=== PATIENT | male | born 1960 | race Caucasian/White ===

== ENCOUNTER → 2017-09-04 | Outpatient (CLI) | payer BC ==
[~2017-09-04] MED LIST: ATROPINE 0.5 MG/5 ML DISP.SYRINGE.; CONTRAST GIVEN MC; IODIXANOL 320 MG/ML 100 ML VIAL.; LIDOCAINE 2% 20 ML VIAL.; MIDAZOLAM HCL/PF 2 MG/2 ML VIAL.; ONDANSETRON PF 4 MG/2 ML VIAL.; fentaNYL PF VIAL 100 MCG/2 ML VIAL
[2017-09-04 08:17] LABS: HEMATOCRIT 42.8 % (39.0-53.0); MEAN CORPUSCULAR HEMOGLOBIN 30 pg (25-35); MEAN CORPUSCULAR HGB CONC 35 g/dL (31-37); MEAN CORPUSCULAR VOLUME 86 fL (79-100); PLATELET COUNT 262 x10^3/uL (140-400); RED BLOOD COUNT 4.95 x10^6/uL (4.30-5.70)
[2017-09-04 08:26] LABS: ANION GAP 9 (6-14); BLOOD UREA NITROGEN 24 mg/dL (8-26); CALCIUM 9.6 mg/dL (8.5-10.1); CARBON DIOXIDE 26 mmol/L (21-32); CHLORIDE 99 mmol/L (98-107); CREATININE 1.2 mg/dL (0.7-1.3); GFR 63.1; GLUCOSE 122 mg/dL (70-99); POTASSIUM 4.4 mmol/L (3.5-5.1); SODIUM 134 mmol/L (136-145)
[2017-09-04 08:29] LABS: PARTIAL THROMBOPLASTIN TIME 26 SEC (24-38); PROTHROMBIN TIME PATIENT 12.5 SEC (11.7-14.0)
[2017-09-04] MEDS: IODIXANOL 320 MG/ML 100 ML VIAL. IART (10:38)
[2017-09-04] MEDS: MIDAZOLAM HCL/PF 2 MG/2 ML VIAL. IV (10:39)
[2017-09-04] MEDS: LIDOCAINE 2% 20 ML VIAL. IJ (10:39)
[2017-09-04] MEDS: fentaNYL PF VIAL 100 MCG/2 ML VIAL IV (10:40)
== END | disposition home or self-care (01) ==
LOC: CCL 07:55
DX: I25.119 Atherosclerotic heart disease of native coronary artery with unspecified angina pectoris (principal); I10 Essential (primary) hypertension; E78.5 Hyperlipidemia, unspecified; F41.9 Anxiety disorder, unspecified; K21.9 Gastro-esophageal reflux disease without esophagitis; Z79.899 Other long term (current) drug therapy; Z79.82 Long term (current) use of aspirin; Z79.01 Long term (current) use of anticoagulants; Z82.49 Family history of ischemic heart disease and other diseases of the circulatory system
CPT/HCPCS: 36415; 80048; 85027; 85610; 85730; 93458; 99152; C1769; C1771; C1892; G0269; J1644; J2250; J3010

== ENCOUNTER → 2017-09-30 | Outpatient (CLI) | payer BC | END | disposition home or self-care (01) | LOC: KCIC MRI 15:11 | DX: M50.223 Other cervical disc displacement at C6-C7 level (principal) | CPT/HCPCS: 72141 ==

== ENCOUNTER 2018-06-27 03:37 | Emergency (ER) | payer BC ==
[~2018-06-27] VITALS: Ht 175.3 cm; Wt 110.2 kg
[~2018-06-27 03:37] MED LIST changes: +ASPI325T11 PO; -ATROPINE 0.5 MG/5 ML DISP.SYRINGE.; -CONTRAST GIVEN MC; +CRESTOR20 MG PO; +FENO145T PO; -IODIXANOL 320 MG/ML 100 ML VIAL.; +LANS30CA66 PO; -LIDOCAINE 2% 20 ML VIAL.; +LISI-334 PO; -MIDAZOLAM HCL/PF 2 MG/2 ML VIAL.; +NIAC500T PO; +OMEG1CAP6 PO; -ONDANSETRON PF 4 MG/2 ML VIAL.; -fentaNYL PF VIAL 100 MCG/2 ML VIAL
[2018-06-27] MEDS ORDERED: ONDANSETRON PF 4 MG/2 ML VIAL. IV ONE (04:45)
[2018-06-27] MEDS ORDERED: fentaNYL PF VIAL 100 MCG/2 ML VIAL IV ONE (04:45)
[2018-06-27] MEDS ORDERED: IV NORMAL SALINE 1000ML BAG 1,000 ML IV ONE (04:45)
--- NOTE | 2018-06-27 04:57 | PHYS DOC ---
Past Medical History Past Medical History: Cancer, Diverticulosis (Dx in 2017 from colonoscopy), High Cholesterol, Hypertension Additional Past Medical Histor: SKIN CA (BONNIE WELLER MD) Past Surgical History: Appendectomy, Other Additional Past Surgical Histo: "TRIPLE HERNIA" (BONNIE WELLER MD) Alcohol Use: Occasionally Drug Use: None (BONNIE WELLER MD) Adult General Chief Complaint Chief Complaint: GROIN PAIN HPI HPI Patient is a 57 year old male who presents with left lower quadrant abdominal/ left groin pain. Pt reports the pain starting yesterday afternoon that he describes as a progressively worsening soreness. He states it "starts right above my testicle" and in his LLQ with rads down his anterior left thigh, stopping at the knee. He rates the pain 4/10 that is constant, and the pain goes up to a 9/10 with palpation. Laying on his left side decreases his pain, while lying supine or on his right side increases pain. Pt's last BM was yesterday (06/26/18) at 1700, and he is still passing gas. He has a history of 3 hernia repairs in 2002 (left and right inguinal hernias w/ mesh, and an umbilical hernia) and an appendectomy. He denies dysuria, hematuria, n/v, diarrhea, constipation, fever, chills, or blood in stool. He had a colonoscopy in 2017 that let to a diagnosis of diverticulosis. Pt recently was diagnosed with "high iron" and fatty disease of the liver. (BONNIE WELLER MD) Review of Systems Review of Systems Constitutional: Denies fever or chills [] Eyes: Denies change in visual acuity, redness, or eye pain [] HENT: Denies nasal congestion or sore throat [] Respiratory: Denies cough or shortness of breath [] Cardiovascular: No additional information not addressed in HPI [] GI: Admits to abdominal pain, most prominent in the LLQ. He denies nausea, vomiting, bloody stools or diarrhea [] : Denies dysuria or hematuria [] Musculoskeletal: Denies back pain or joint pain [] Neurologic: Denies headache, focal weakness or sensory changes [] All other systems were reviewed and found to be within normal limits, except as documented in this note. (BONNIE WELLER MD) Current Medications Current Medications Current Medications Medications (Trade) Dose Ordered Sig/Derek Start Time Stop Time Status Last Admin Dose Admin Fentanyl Citrate (Fentanyl 2ml Vial) 50 mcg 1X ONCE 06/27/18 04:45 06/27/18 04:46 DC 06/27/18 05:03 50 MCG Info (CONTRAST GIVEN -- Rx MONITORING) 1 each PRN DAILY PRN 06/27/18 05:30 06/29/18 05:29 Iohexol (Omnipaque 300 Mg/ml) 75 ml 1X ONCE 06/27/18 05:30 06/27/18 05:31 DC 06/27/18 05:44 75 ML Ondansetron HCl (Zofran) 4 mg 1X ONCE 06/27/18 04:45 06/27/18 04:46 DC 06/27/18 05:03 4 MG Sodium Chloride 1,000 ml @ 1,000 mls/hr 1X ONCE 06/27/18 04:45 06/27/18 05:44 DC 06/27/18 05:02 1,000 MLS/HR (EIDENBERG,DEMOND DO) Allergies Allergies Allergies Coded Allergies Type Severity Reaction Last Updated Verified No Known Drug Allergies 09/04/17 No (EIDENBERG,DEMOND DO) Physical Exam Physical Exam Constitutional: Well developed, well nourished, mild distress, non-toxic appearance. [] Neck: Normal range of motion, no tenderness, supple, no stridor. [] Cardiovascular:Heart rate regular rhythm, no murmur [] Lungs & Thorax: Bilateral breath sounds clear to auscultation [] Abdomen: Bowel sounds normal in RU/LQ and LUQ, hypoactive BS in LLQ soft. Pt is tender to light palpation in LLQ and umbilical region. [] Skin: Warm, dry, no erythema, no rash. [] Back: No tenderness, no CVA tenderness. [] Extremities: No tenderness, no cyanosis, no clubbing, ROM intact, no edema. [] Neurologic: Alert and oriented X 3, normal motor function, normal sensory function, no focal deficits noted. [] Psychologic: Affect normal, judgement normal, mood normal. [] (BONNIE WELLER MD) Current Patient Data Vital Signs Vital Signs Date Time Temp Pulse Resp B/P (MAP) Pulse Ox O2 Delivery O2 Flow Rate FiO2 06/27/18 05:03 18 100 Room Air 06/27/18 03:37 98.0 86 142/89 (106) 98.0 ([facility]) Lab Values Laboratory Tests Test 06/27/18 04:59 White Blood Count 12.7 x10^3/uL (4.0-11.0) H Red Blood Count 5.11 x10^6/uL (4.30-5.70) Hemoglobin 14.7 g/dL (13.0-17.5) Hematocrit 43.5 % (39.0-53.0) Mean Corpuscular Volume 85 fL (79-100) Mean Corpuscular Hemoglobin 29 pg (25-35) Mean Corpuscular Hemoglobin Concent 34 g/dL (31-37) Red Cell Distribution Width 13.6 % (11.5-14.5) Platelet Count 284 x10^3/uL (140-400) Neutrophils (%) (Auto) 74 % (31-73) H Lymphocytes (%) (Auto) 16 % (24-48) L Monocytes (%) (Auto) 8 % (0-9) Eosinophils (%) (Auto) 2 % (0-3) Basophils (%) (Auto) 1 % (0-3) Neutrophils # (Auto) 9.4 x10^3uL (1.8-7.7) H Lymphocytes # (Auto) 2.0 x10^3/uL (1.0-4.8) Monocytes # (Auto) 1.0 x10^3/uL (0.0-1.1) Eosinophils # (Auto) 0.2 x10^3/uL (0.0-0.7) Basophils # (Auto) 0.1 x10^3/uL (0.0-0.2) Urine Collection Type Unknown Urine Color Yellow Urine Clarity Clear Urine pH 7.5 Urine Specific D [place] 1.015 Urine Protein Negative mg/dL (NEG-TRACE) Urine Glucose (UA) Negative mg/dL (NEG) Urine Ketones (Stick) Negative mg/dL (NEG) Urine Blood Negative (NEG) Urine Nitrite Negative (NEG) Urine Bilirubin Negative (NEG) Urine Urobilinogen Dipstick 0.2 mg/dL (0.2 mg/dL) Urine Leukocyte Esterase Negative (NEG) Urine RBC 0 /HPF (0-2) Urine WBC 0 /HPF (0-4) Urine Squamous Epithelial Cells None /LPF Urine Bacteria 0 /HPF (0-FEW) Sodium Level 135 mmol/L (136-145) L Potassium Level 4.3 mmol/L (3.5-5.1) Chloride Level 99 mmol/L (98-107) Carbon Dioxide Level 27 mmol/L (21-32) Anion Gap 9 (6-14) Blood Urea Nitrogen 17 mg/dL (8-26) Creatinine 0.9 mg/dL (0.7-1.3) Estimated GFR (Cockcroft-Gault) 87.6 BUN/Creatinine Ratio 19 (6-20) Glucose Level 114 mg/dL (70-99) H Calcium Level 9.6 mg/dL (8.5-10.1) Total Bilirubin 0.5 mg/dL (0.2-1.0) Aspartate Amino Transferase (AST) 24 U/L (15-37) Alanine Aminotransferase (ALT) 45 U/L (16-63) Alkaline Phosphatase 54 U/L (46-116) Total Protein 7.3 g/dL (6.4-8.2) Albumin 3.9 g/dL (3.4-5.0) Albumin/Globulin Ratio 1.1 (1.0-1.7) Lipase 96 U/L (73-393) Laboratory Tests 06/27/18 04:59 Laboratory Tests 06/27/18 04:59 ([facility]) Lab Values Laboratory Tests Test 06/27/18 04:59 White Blood Count 12.7 x10^3/uL (4.0-11.0) H Red Blood Count 5.11 x10^6/uL (4.30-5.70) Hemoglobin 14.7 g/dL (13.0-17.5) Hematocrit 43.5 % (39.0-53.0) Mean Corpuscular Volume 85 fL (79-100) Mean Corpuscular Hemoglobin 29 pg (25-35) Mean Corpuscular Hemoglobin Concent 34 g/dL (31-37) Red Cell Distribution Width 13.6 % (11.5-14.5) Platelet Count 284 x10^3/uL (140-400) Neutrophils (%) (Auto) 74 % (31-73) H Lymphocytes (%) (Auto) 16 % (24-48) L Monocytes (%) (Auto) 8 % (0-9) Eosinophils (%) (Auto) 2 % (0-3) Basophils (%) (Auto) 1 % (0-3) Neutrophils # (Auto) 9.4 x10^3uL (1.8-7.7) H Lymphocytes # (Auto) 2.0 x10^3/uL (1.0-4.8) Monocytes # (Auto) 1.0 x10^3/uL (0.0-1.1) Eosinophils # (Auto) 0.2 x10^3/uL (0.0-0.7) Basophils # (Auto) 0.1 x10^3/uL (0.0-0.2) Urine Collection Type Unknown Urine Color Yellow Urine Clarity Clear Urine pH 7.5 Urine Specific D Lo 1.015 Urine Protein Negative mg/dL (NEG-TRACE) Urine Glucose (UA) Negative mg/dL (NEG) Urine Ketones (Stick) Negative mg/dL (NEG) Urine Blood Negative (NEG) Urine Nitrite Negative (NEG) Urine Bilirubin Negative (NEG) Urine Urobilinogen Dipstick 0.2 mg/dL (0.2 mg/dL) Urine Leukocyte Esterase Negative (NEG) Urine RBC 0 /HPF (0-2) Urine WBC 0 /HPF (0-4) Urine Squamous Epithelial Cells None /LPF Urine Bacteria 0 /HPF (0-FEW) Sodium Level 135 mmol/L (136-145) L Potassium Level 4.3 mmol/L (3.5-5.1) Chloride Level 99 mmol/L (98-107) Carbon Dioxide Level 27 mmol/L (21-32) Anion Gap 9 (6-14) Blood Urea Nitrogen 17 mg/dL (8-26) Creatinine 0.9 mg/dL (0.7-1.3) Estimated GFR (Cockcroft-Gault) 87.6 BUN/Creatinine Ratio 19 (6-20) Glucose Level 114 mg/dL (70-99) H Calcium Level 9.6 mg/dL (8.5-10.1) Total Bilirubin 0.5 mg/dL (0.2-1.0) Aspartate Amino Transferase (AST) 24 U/L (15-37) Alanine Aminotransferase (ALT) 45 U/L (16-63) Alkaline Phosphatase 54 U/L (46-116) Total Protein 7.3 g/dL (6.4-8.2) Albumin 3.9 g/dL (3.4-5.0) Albumin/Globulin Ratio 1.1 (1.0-1.7) Lipase 96 U/L (73-393) Laboratory Tests 06/27/18 04:59 Laboratory Tests 06/27/18 04:59 (BONNIE WELLER MD) EKG EKG [] (BONNIE WELLER MD) Radiology/Procedures Radiology/Procedures [] (BONNIE WELLER MD) Radiology/Procedures CT abdomen pelvis with contrast dated 06/27/2018. No comparison available. CLINICAL INDICATION: Left lower quadrant pain. TECHNIQUE: Contiguous axial imaging of the abdomen and pelvis performed after the administration of 75 cc Isovue-370. One or more of the following individualized dose reduction techniques were utilized for this examination: 1. Automated exposure control 2. Adjustment of the mA and/or kV according to patient size 3. Use of iterative reconstruction technique. FINDINGS: Limited images of lung bases are clear. Heart size within normal limits. No pleural or pericardial effusion. Liver, spleen, pancreas, adrenal glands, gallbladder and kidneys are unremarkable. No hydronephrosis. Focal area of wall thickening involving the sigmoid colon with adjacent inflammatory changes in the perisigmoid fat. There are scattered diverticula throughout. No localized fluid collection to suggest abscess. No free air. GI tract is otherwise normal in caliber and contour. No additional areas of bowel wall thickening. The appendix is not identified and may be surgically absent. No free fluid or lymphadenopathy. Abdominal aorta normal in caliber. Evidence of prior ventral hernia repair with no recurrent hernia defect. Images of pelvis show nondistended urinary bladder. Prostate gland normal in size. No free fluid or lymphadenopathy. Evidence of prior bilateral inguinal hernia repair. Bone windows show no acute findings. Multilevel spondylosis. IMPRESSION: 1. Findings consistent with acute sigmoid diverticulitis. No evidence of localized perforation or abscess at this time. 2. Otherwise no acute findings. 3. Evidence of prior bilateral inguinal hernia repair and ventral hernia repair (DEMOND COLLADO DO) Course & Med Decision Making Course & Med Decision Making Patient is a 57 year old male who presents with left lower quadrant abdominal/ left groin pain. Pt reports the pain starting yesterday afternoon that he describes as a progressively worsening soreness. He states it "starts right above my testicle" and in his LLQ with rads down his anterior left thigh, stopping at the knee. He rates the pain 4/10 that is constant, and the pain goes up to a 9/10 with palpation. Laying on his left side decreases his pain, while lying supine or on his right side increases pain. Pt's last BM was yesterday (06/26/18) at 1700, and he is still passing gas. He has a history of 3 hernia repairs in 2002 (left and right inguinal hernias w/ mesh, and an umbilical hernia) and an appendectomy. He denies dysuria, hematuria, n/v, diarrhea, constipation, fever, chills, or blood in stool. He had a colonoscopy in 2017 that let to a diagnosis of diverticulosis. Pt recently was diagnosed with "high iron" and fatty disease of the liver. Given the patients presentation, prior abdominal surgeries, and recent colonoscopy findings, the most likely diagnoses at the time are: 1. Diverticulitis 2. Nephrolithiasis 3. Volvulus 4. Large bowel obstruction 5. Ischemic Colitis 6. Fecal impaction To help r/o or rule in the above, pt will: have blood drawn for the following labs - CMP, CBC, LFT's, Fe level, Ferritin level Supine and upright abdominal X-Ray Abdominal/Pelvic CT w/ contrast Pt will be given fentanyl for pain while awaiting CT. (BONNIE WELLER MD) Course & Med Decision Making Received patient at 6 AM. Agree with previous H&P. CT scan reviewed by me. Patient was feeling much better on evaluation at 6:15. Discussed findings and plan with the patient who voiced understanding. He was there along with his who also voiced understanding. He was discharged in improved condition. (DEMOND COLLADO DO) Dragon Disclaimer Dragon Disclaimer This electronic medical record was generated, in whole or in part, using a voice recognition dictation system. (BONNIE WELLER MD) Departure Departure Referrals: MEMO SPAIN DO (PCP) Scripts Ondansetron Hcl (ZOFRAN) 4 Mg Tablet 4 MG PO PRN TID PRN for NAUSEA/VOMITING, #15 nausea/vomiting Prov: BONNIE WELLER MD 06/27/18 Hydrocodone/Apap 5-325 (NORCO 5-325 TABLET) 1 Each Tablet 1-2 EACH PO PRN Q6HRS PRN for PAIN, #15 as needed for pain Prov: BONNIE WELLER MD 06/27/18 Amoxicillin/Potassium Clav (AUGMENTIN 875-125 TABLET) 1 Each Tablet 1 TAB PO BID, #20 TAB Prov: BONNIE WELLER MD 06/27/18 BONNIE WELLER MD Jun 27, 2018 04:57 DEMOND COLLADO DO Jun 27, 2018 06:19
[2018-06-27 05:02] LABS: BASO # 0.1 x10^3/uL (0.0-0.2); BASO % 1 % (0-3); EOS # 0.2 x10^3/uL (0.0-0.7); EOS % 2 % (0-3); HEMATOCRIT 43.5 % (39.0-53.0); HEMOGLOBIN 14.7 g/dL (13.0-17.5); LYMPH % 16 % (24-48); MEAN CORPUSCULAR HEMOGLOBIN 29 pg (25-35); MEAN CORPUSCULAR HGB CONC 34 g/dL (31-37); MEAN CORPUSCULAR VOLUME 85 fL (79-100); MONO % 8 % (0-9); NEUT # 9.4 x10^3uL (1.8-7.7); NEUT % 74 % (31-73); PLATELET COUNT 284 x10^3/uL (140-400); RED BLOOD COUNT 5.11 x10^6/uL (4.30-5.70); RED CELL DISTRIBUTION WIDTH 13.6 % (11.5-14.5); WHITE BLOOD COUNT 12.7 x10^3/uL (4.0-11.0)
[2018-06-27 05:05] LABS: BILIRUBIN,URINE NEGATIVE (NEG); CLARITY,URINE CLEAR; COLOR,URINE YELLOW; NITRITE,URINE NEGATIVE (NEG); PH,URINE 7.5; PROTEIN,URINE NEGATIVE (NEG-TRACE); UROBILINOGEN,URINE 0.2 mg/dL (0.2 mg/dL)
[2018-06-27 05:10] LABS: CALCIUM 9.6 mg/dL (8.5-10.1); CREATININE 0.9 mg/dL (0.7-1.3); GFR 87.6; POTASSIUM 4.3 mmol/L (3.5-5.1)
[2018-06-27 05:16] LABS: ALBUMIN 3.9 g/dL (3.4-5.0); ALBUMIN/GLOBULIN RATIO 1.1 (1.0-1.7); TOTAL BILIRUBIN 0.5 mg/dL (0.2-1.0); TOTAL PROTEIN 7.3 g/dL (6.4-8.2)
[2018-06-27 05:19] LABS: BACTERIA,URINE 0 /HPF (0-FEW); RBC,URINE 0 /HPF (0-2); WBC,URINE 0 /HPF (0-4)
[2018-06-27] MEDS ORDERED: CONTRAST GIVEN. MC PRN (05:30)
[2018-06-27] MEDS ORDERED: IOHEXOL 300 MG/ML 100ML VIAL. IV ONE (05:30)
[2018-06-27] MEDS ORDERED: AMOX1TAB61 PO (05:55)
[2018-06-27] MEDS ORDERED: ONDA4TAB7 PO (05:55)
[2018-06-27] MEDS ORDERED: HYDR-3164 PO (05:55)
[2018-06-27 06:06] VITALS: BP 121/66
--- NOTE | 2018-06-27 06:10 | RAD ---
CT abdomen pelvis with contrast dated 06/27/2018. No comparison available. CLINICAL INDICATION: Left lower quadrant pain. TECHNIQUE: Contiguous axial imaging of the abdomen and pelvis performed after the administration of 75 cc Isovue-370. One or more of the following individualized dose reduction techniques were utilized for this examination: 1. Automated exposure control 2. Adjustment of the mA and/or kV according to patient size 3. Use of iterative reconstruction technique. FINDINGS: Limited images of lung bases are clear. Heart size within normal limits. No pleural or pericardial effusion. Liver, spleen, pancreas, adrenal glands, gallbladder and kidneys are unremarkable. No hydronephrosis. Focal area of wall thickening involving the sigmoid colon with adjacent inflammatory changes in the perisigmoid fat. There are scattered diverticula throughout. No localized fluid collection to suggest abscess. No free air. GI tract is otherwise normal in caliber and contour. No additional areas of bowel wall thickening. The appendix is not identified and may be surgically absent. No free fluid or lymphadenopathy. Abdominal aorta normal in caliber. Evidence of prior ventral hernia repair with no recurrent hernia defect. Images of pelvis show nondistended urinary bladder. Prostate gland normal in size. No free fluid or lymphadenopathy. Evidence of prior bilateral inguinal hernia repair. Bone windows show no acute findings. Multilevel spondylosis. IMPRESSION: 1. Findings consistent with acute sigmoid diverticulitis. No evidence of localized perforation or abscess at this time. 2. Otherwise no acute findings. 3. Evidence of prior bilateral inguinal hernia repair and ventral hernia repair Electronically signed by: Giorgio Reid MD (06/27/2018 6:06 AM) [facility]
== END 2018-06-27 06:25 | disposition home or self-care (01) ==
LOC: ER 03:37
DX: R10.32 Left lower quadrant pain (principal); E78.00 Pure hypercholesterolemia, unspecified; I10 Essential (primary) hypertension; Z90.89 Acquired absence of other organs
CPT/HCPCS: 36415; 74177; 80053; 81001; 83690; 85025; 96374; 96375; 99284; J2405; J3010; J7030; Q9967

== ENCOUNTER 2020-03-17 09:44 | Emergency (ER) | payer BC ==
[~2020-03-17] VITALS: Ht 175.3 cm; Wt 111.3 kg
[~2020-03-17 09:44] MED LIST changes: +AMOX1TAB61 PO; +HYDR-3164 PO; +ONDA4TAB7 PO
[2020-03-17 10:24] LABS: BASO % 0 % (0-3); EOS # 0.1 x10^3/uL (0.0-0.7); EOS % 1 % (0-3); HEMOGLOBIN 14.5 g/dL (13.0-17.5); LYMPH # 1.7 x10^3/uL (1.0-4.8); LYMPH % 12 % (24-48); MEAN CORPUSCULAR HEMOGLOBIN 29 pg (25-35); MEAN CORPUSCULAR HGB CONC 35 g/dL (31-37); MEAN CORPUSCULAR VOLUME 85 fL (79-100); MONO % 8 % (0-9); NEUT # 10.5 x10^3/uL (1.8-7.7); NEUT % 78 % (31-73); PLATELET COUNT 257 x10^3/uL (140-400); RED BLOOD COUNT 4.96 x10^6/uL (4.30-5.70); RED CELL DISTRIBUTION WIDTH 13.6 % (11.5-14.5); WHITE BLOOD COUNT 13.4 x10^3/uL (4.0-11.0)
[2020-03-17 10:39] LABS: CALCIUM 9.6 mg/dL (8.5-10.1); CREATININE 0.9 mg/dL (0.7-1.3); POTASSIUM 4.3 mmol/L (3.5-5.1)
[2020-03-17 10:44] LABS: ALBUMIN 3.9 g/dL (3.4-5.0); ALBUMIN/GLOBULIN RATIO 1.3 (1.0-1.7); TOTAL BILIRUBIN 0.4 mg/dL (0.2-1.0); TOTAL PROTEIN 6.9 g/dL (6.4-8.2)
[2020-03-17] MEDS ORDERED: IOHEXOL 240 MG/ML 50ML VIAL. PO ONE (11:00)
[2020-03-17] MEDS ORDERED: IOHEXOL 300 MG/ML 100ML VIAL. IV ONE (11:00)
[2020-03-17] MEDS ORDERED: CONTRAST GIVEN. MC PRN (11:15)
--- NOTE | 2020-03-17 11:15 | ED.ADGEN ---
Past Medical History Past Medical History: Cancer, Diverticulitis, Diverticulosis, High Cholesterol, Hypertension, Other Additional Past Medical Histor: SKIN CA Past Surgical History: Appendectomy, Other Additional Past Surgical Histo: "TRIPLE HERNIA" Smoking Status: Never Smoker Alcohol Use: Occasionally Additional Information: 4 DAYS WEEK,BEER Drug Use: None General Adult EDM: Chief Complaint: ABDOMINAL PAIN HPI: HPI: Patient is a 59-year-old male who presents to the emergency room complaining of left-sided abdominal pain. He has been having intermittent pain for the last month, however it is gotten significantly worse over the last 12 hours. Patient states that initially it would come and go. He states that it started last night and has progressively gotten worse. He took some ibuprofen last night with minimal relief. He was able to fall back asleep but then woke up this morning with more severe pain. He has been having normal bowel movements. He denies any blood in his stools. He denies any nausea, vomiting, chest pain, shortness of breath, fever, chills, sweats. He does not have any urinary symptoms. He does not have any back pain. Review of Systems: Review of Systems: Complete ROS is negative unless otherwise documented in HPI Current Medications: Current Medications Medications (Trade) Dose Ordered Sig/Derek Start Time Stop Time Status Last Admin Dose Admin Info (CONTRAST GIVEN -- Rx MONITORING) 1 each PRN DAILY PRN 03/17/20 11:15 03/19/20 11:14 Iohexol (Omnipaque 240 Mg/ml) 30 ml 1X ONCE 03/17/20 11:00 03/17/20 11:02 DC 03/17/20 11:00 30 ML Iohexol (Omnipaque 300 Mg/ml) 75 ml 1X ONCE 03/17/20 11:00 03/17/20 11:02 DC 03/17/20 12:05 75 ML Allergies: Allergies: Allergies Coded Allergies Type Severity Reaction Last Updated Verified No Known Drug Allergies 09/04/17 No Physical Exam: PE: General: Awake, alert, NAD. Well Nourished, well hydrated. Cooperative HEENT: Atraumatic, EOMI, PERRL, airway patent, moist oral mucosa Neck: Supple, trachea midline Respiratory: CTA bilaterally, normal effort, no wheezing/crackles CV: RRR, no murmur, cap refill <2 GI: Soft, nondistended, left-sided abdominal tenderness with minimal guarding, no masses MSK: No obvious deformities Skin: Warm, dry, intact Neuro: A&O x3, speech NL, sensory and motor grossly intact, no focal deficits Psych: Normal affect, normal mood, not suicidal or homicidal Current Patient Data: Labs: Laboratory Tests Test 03/17/20 10:01 03/17/20 12:00 White Blood Count 13.4 x10^3/uL (4.0-11.0) H Red Blood Count 4.96 x10^6/uL (4.30-5.70) Hemoglobin 14.5 g/dL (13.0-17.5) Hematocrit 42.0 % (39.0-53.0) Mean Corpuscular Volume 85 fL (79-100) Mean Corpuscular Hemoglobin 29 pg (25-35) Mean Corpuscular Hemoglobin Concent 35 g/dL (31-37) Red Cell Distribution Width 13.6 % (11.5-14.5) Platelet Count 257 x10^3/uL (140-400) Neutrophils (%) (Auto) 78 % (31-73) H Lymphocytes (%) (Auto) 12 % (24-48) L Monocytes (%) (Auto) 8 % (0-9) Eosinophils (%) (Auto) 1 % (0-3) Basophils (%) (Auto) 0 % (0-3) Neutrophils # (Auto) 10.5 x10^3/uL (1.8-7.7) H Lymphocytes # (Auto) 1.7 x10^3/uL (1.0-4.8) Monocytes # (Auto) 1.0 x10^3/uL (0.0-1.1) Eosinophils # (Auto) 0.1 x10^3/uL (0.0-0.7) Basophils # (Auto) 0.0 x10^3/uL (0.0-0.2) Sodium Level 134 mmol/L (136-145) L Potassium Level 4.3 mmol/L (3.5-5.1) Chloride Level 101 mmol/L (98-107) Carbon Dioxide Level 24 mmol/L (21-32) Anion Gap 9 (6-14) Blood Urea Nitrogen 16 mg/dL (8-26) Creatinine 0.9 mg/dL (0.7-1.3) Estimated GFR (Cockcroft-Gault) 87.0 BUN/Creatinine Ratio 18 (6-20) Glucose Level 117 mg/dL (70-99) H Calcium Level 9.6 mg/dL (8.5-10.1) Total Bilirubin 0.4 mg/dL (0.2-1.0) Aspartate Amino Transferase (AST) 24 U/L (15-37) Alanine Aminotransferase (ALT) 37 U/L (16-63) Alkaline Phosphatase 52 U/L (46-116) Total Protein 6.9 g/dL (6.4-8.2) Albumin 3.9 g/dL (3.4-5.0) Albumin/Globulin Ratio 1.3 (1.0-1.7) Lipase 93 U/L (73-393) Urine Collection Type Unknown Urine Color Yellow Urine Clarity Clear Urine pH 7.0 (<5.0-8.0) Urine Specific [place] 1.015 (1.000-1.030) Urine Protein Negative mg/dL (NEG-TRACE) Urine Glucose (UA) Negative mg/dL (NEG) Urine Ketones (Stick) Negative mg/dL (NEG) Urine Blood Negative (NEG) Urine Nitrite Negative (NEG) Urine Bilirubin Negative (NEG) Urine Urobilinogen Dipstick 0.2 mg/dL (0.2 mg/dL) Urine Leukocyte Esterase Negative (NEG) Urine RBC 1-2 /HPF (0-2) Urine WBC 1-4 /HPF (0-4) Urine Bacteria 0 /HPF (0-FEW) Urine Mucus Slight /LPF Laboratory Tests 03/17/20 10:01 Laboratory Tests 03/17/20 10:01 Vital Signs: Vital Signs Date Time Temp Pulse Resp B/P (MAP) Pulse Ox O2 Delivery O2 Flow Rate FiO2 03/17/20 10:29 92 20 134/104 (114) 96 Room Air 03/17/20 09:49 97.8 97.8 EKG: EKG: [] Heart Score: Risk Factors: Risk Factors: DM, Current or recent (<one month) smoker, HTN, HLP, family history of CAD, obesity. Risk Scores: Score 0 - 3: 2.5% MACE over next 6 weeks - Discharge Home Score 4 - 6: 20.3% MACE over next 6 weeks - Admit for Clinical Observation Score 7 - 10: 72.7% MACE over next 6 weeks - Early Invasive Strategies Radiology/Procedures: Radiology/Procedures: [] Course & Med Decision Making: Course & Med Decision Making Pertinent Labs and Imaging studies reviewed. (See chart for details) Patient is a 59 year-old male with a history of diverticulitis who presents to the Emergency Room complaining of abdominal pain. On exam, patient has left- sided abdominal tenderness with guarding. Due to patients history, age, and exam work up will need to be done to evaluate for intra-abdominal pathology. Work up ordered includes CBC, CMP, lipase, UA, CT abdomen and pelvis. Patient's pain does not epigastric and a cardiac evaluation will not be needed for atypical pain. Ddx includes diverticulitis, colitis, gastritis, pancreatitis. Work up was reviewed and diverticulitis. Patient was placed on antibiotics and will follow up with primary care physician. Patient's test results and vitals while in the ED were fully reviewed and discussed with the patient. Patient is stable and at this time does not need admission to the hospital. We have discussed strict return precautions and the importance of following up with their Primary Care Physician. Patient stated understanding and was given an opportunity to ask any questions. Patient is in agreement with plan. Dragon Disclaimer: Dragon Disclaimer: This electronic medical record was generated, in whole or in part, using a voice recognition dictation system. Departure Departure Impression: Primary Impression: Diverticulitis Disposition: DC HOME SELF CARE/HOMELESS Condition: STABLE Referrals: CRYSTAL ROMAN (PCP) Patient Instructions: Diverticulitis Scripts Hyoscyamine Sulfate (LEVSIN-SL) 0.125 Mg Tab.subl 2-Apr TAB SL PRN Q4HRS PRN for pain for 5 Days, #60 TAB 0 Refills Prov: YURIY SHAW MD 03/17/20 Amoxicillin/Potassium Clav (AMOX TR-K CLV 500-125 MG TAB) 1 Each Tablet 1 TAB PO BID, #20 TAB Prov: YURIY SHAW MD 03/17/20 YURIY SHAW MD Mar 17, 2020 11:15
[2020-03-17 12:18] LABS: BILIRUBIN,URINE NEGATIVE (NEG); CLARITY,URINE CLEAR; COLOR,URINE YELLOW; NITRITE,URINE NEGATIVE (NEG); PROTEIN,URINE NEGATIVE (NEG-TRACE); UROBILINOGEN,URINE 0.2 mg/dL (0.2 mg/dL)
[2020-03-17 12:37] LABS: BACTERIA,URINE 0 /HPF (0-FEW)
--- NOTE | 2020-03-17 12:44 | RAD ---
EXAM: CT Abdomen and Pelvis with IV contrast CLINICAL HISTORY: Left-sided abdominal pain COMPARISON: 06/27/2018 TECHNIQUE: Helical CT of the abdomen and pelvis was performed following the administration of IV contrast. Axial, coronal and sagittal reformatted images were generated. ---PQRS compliance statement - One or more of the following individualized dose reduction techniques were utilized for this study: 1. Automated exposure control 2. Adjustment of the mA and/or kV according to patient size 3. Use of iterative reconstruction technique--- FINDINGS: Lower chest: Coronary calcifications are seen. Lung bases are clear. Abdomen and pelvis: Liver and biliary system: Hepatic hypoattenuation, likely fatty liver. Gallbladder is normal. No biliary ductal dilatation. Spleen: Unremarkable Pancreas: Unremarkable Adrenal glands: Unremarkable Kidneys: Symmetric nephrograms. Nonobstructing left lower pole renal calculus. No hydronephrosis or hydroureter. 1.9 cm right upper pole renal hypodense lesion measures greater than simple fluid. Recommend further evaluation with ultrasound to exclude solid mass. No hydronephrosis or hydroureter. Lymph nodes/retroperitoneum: No abdominal pelvic lymphadenopathy. Vessels: Aorta is grossly normal in caliber. Bowel/Peritoneal cavity: There is diffuse infiltration about colonic diverticula in the distal descending colon. No discrete loculated fluid collection is seen. There has been an appendectomy. Moderate colonic stool content is seen. No small or large bowel dilatation. No bowel obstruction. No abdominal or pelvic ascites. Abdominal wall: Unremarkable Bladder: Bladder wall thickening likely cystitis. Bones: No aggressive osseous lesion is seen. IMPRESSION: 1. Changes of acute diverticulitis without evidence for loculated fluid collection or evidence for perforation. 2. Hepatic hypoattenuation, likely fatty liver. 3. Indeterminate right upper pole hypodense renal lesion measures greater than simple fluid and should be further assessed by ultrasound to exclude solid mass. Electronically signed by: Hector Lizarraga MD (03/17/2020 12:42 PM) [place]
[2020-03-17] MEDS ORDERED: HYOS0.1265 SL (12:51)
[2020-03-17] MEDS ORDERED: AMOX1TAB10 PO (12:51)
[2020-03-17] MEDS ORDERED: AMOXICILLIN/K CLAV 500/125MG TABLET. PO ONE (13:15)
[2020-03-17] MEDS ORDERED: HYOSCYAMINE 0.125 MG TAB.RAPDIS PO PRN (13:15)
[2020-03-17 13:31] VITALS: BP 138/78
== END 2020-03-17 13:20 | disposition home or self-care (01) ==
LOC: ER 09:44
DX: K57.92 Diverticulitis of intestine, part unspecified, without perforation or abscess without bleeding (principal); E78.00 Pure hypercholesterolemia, unspecified; I10 Essential (primary) hypertension; Z90.89 Acquired absence of other organs; Z98.890 Other specified postprocedural states; Z87.19 Personal history of other diseases of the digestive system
CPT/HCPCS: 36415; 74177; 80053; 81001; 83690; 85025; 99285; Q9966; Q9967

== ENCOUNTER → 2021-07-04 | Outpatient (CLI) | payer BC ==
[~2021-07-04] MED LIST changes: +AMOX1TAB10 PO; +HYOS0.1265 SL; -LISI-334 PO; +LISI20TA18 PO
--- NOTE | 2021-07-05 07:54 | CARD ---
MR#: [id number] Date of Study: 07/04/2021 Ordering Physician: SKIP GREGORY, Referring Physician: SKIP GREGORY, Tech: Ashli Ibarra [facility] APPROVED REPORT EXAM: Two-dimensional and M-mode echocardiogram with Doppler and color Doppler. Other Information Quality : AverageHR: 75bpm Rhythm : NSR INDICATION Cardiac Disease: CAD RISK FACTORS Hypertension Obesity Hyperlipidemia 2D DIMENSIONS RVDd3.8 (2.9-3.5cm)IVSd1.3 (0.7-1.1cm) LVDd4.4 (3.9-5.9cm)PWd1.2 (0.7-1.1cm) LVDs3.6 (2.5-4.0cm)FS (%) 18.4 % SV34.2 mlLVEF(%)38.4 (>50%) Aortic Valve AoV Peak Geremias.171.9cm/sAoV VTI30.4cm AO Peak GR.11.8mmHgLVOT Peak Geremias.147.5cm/s AO Mean GR.5mmHg Mitral Valve MV E Tjlauzpo36.2cm/sMV DECEL GNYF130lr MV A Dgemjpem38.4cm/sE/A Ratio1.0 Pulmonary Valve PV Peak Qarcawya370.7cm/s Tricuspid Valve TR P. Xrtitltb548iy/sTR Peak Gr.28mmHg LEFT VENTRICLE The left ventricle is normal size. There is mild concentric left ventricular hypertrophy. The left ve ntricular systolic function is normal. Estimated ejection fraction 60-65% There is normal LV segment al wall motion. The left ventricular diastolic function and filling is normal for age. RIGHT VENTRICLE The right ventricle is normal size. There is normal right ventricular wall thickness. The right ventr icular systolic function is normal. ATRIA The left atrium size is normal. The right atrium size is normal. The interatrial septum is intact wit h no evidence for an atrial septal defect or patent foramen ovale as noted on 2-D or Doppler imaging. AORTIC VALVE The aortic valve is normal in structure and function. Doppler and Color Flow revealed no significant aortic regurgitation. There is no significant aortic valvular stenosis. MITRAL VALVE The mitral valve is normal in structure and function. There is no evidence of mitral valve prolapse. There is no mitral valve stenosis. Doppler and Color Flow revealed no mitral valve regurgitation note d. TRICUSPID VALVE The tricuspid valve is normal in structure and function. Doppler and Color Flow revealed no tricuspid valve regurgitation noted. PULMONIC VALVE The pulmonary valve is normal in structure and function. GREAT VESSELS The aortic root is normal in size. The ascending aorta is normal in size. The IVC is normal in size a nd collapses >50% with inspiration. PERICARDIAL EFFUSION There is no evidence of significant pericardial effusion. Critical Notification Critical Value: No <Conclusion> The left ventricular systolic function is normal. Estimated ejection fraction 60-65% There is normal LV segmental wall motion. There is no evidence of significant pericardial effusion. Signed by : Bunny Andrew, Electronically Approved : 07/05/2021 07:54:06
== END ==
LOC: ECHO 14:20
PROVIDERS: ATTEND Internal Medicine Cardiovascular Disease
DX: I51.7 Cardiomegaly (principal); I25.10 Atherosclerotic heart disease of native coronary artery without angina pectoris
CPT/HCPCS: 93306; C8929